=== PATIENT | female | born 1995 | race Caucasian/White ===

== ENCOUNTER 2018-05-19 04:47 | Inpatient (IN) | payer BC, MEDICAID ==
[2018-05-18 12:40] LABS: ABSOLUTE EOSINOPHILS # (AUTO) 0.4 10^3/uL (0.0-0.6); ABSOLUTE LYMPHOCYTES (AUTO) 1.8 10^3/uL (0.5-4.7); ABSOLUTE MONOCYTES (AUTO) 0.8 10^3/uL (0.1-1.4); ABSOLUTE NEUT (AUTO) 9.2 10^3/uL (1.7-8.2); BASOPHILS % (AUTO) 0.4 % (0-2); EOSINOPHILS % (AUTO) 3.3 % (0-6); HEMATOCRIT 33.1 % (36.0-47.0); HEMOGLOBIN 10.8 g/dL (12.0-15.5); LYMPHOCYTES % (AUTO) 14.5 % (13-45); MEAN CORPUSCULAR HEMOGLOBIN 24.8 pg (27.0-33.4); MEAN CORPUSCULAR HGB CONC 32.6 g/dL (32.0-36.0); MEAN CORPUSCULAR VOLUME 76 fl (80-97); MONOCYTES % (AUTO) 6.9 % (3-13); PLATELET COUNT 337 10^3/uL (150-450); RED BLOOD COUNT 4.34 10^6/uL (3.72-5.28); SEGMENTED NEUTROPHILS % (AUTO) 74.9 % (42-78); TOTAL CELLS COUNTED % (AUTO) 100 %; WHITE BLOOD COUNT 12.3 10^3/uL (4.0-10.5)
[2018-05-18 12:54] LABS: APPEARANCE,URINE CLEAR; BILIRUBIN,URINE NEGATIVE (NEGATIVE); COLOR,URINE YELLOW; GLUCOSE, URINE 50 mg/dL (NEGATIVE); KETONES,URINE TRACE mg/dL (NEGATIVE); LEUKOCYTE ESTERASE,URINE NEGATIVE (NEGATIVE); NITRITE,URINE NEGATIVE (NEGATIVE); PROTEIN,URINE NEGATIVE (NEGATIVE); URINE SPECIFIC GRAVITY 1.017; UROBILINOGEN,URINE NEGATIVE mg/dL (<2.0)
[2018-05-18 12:55] LABS: URINE AMPHETAMINES SCREEN NEGATIVE; URINE BARBITURATES SCREEN NEGATIVE; URINE BENZODIAZEPINES SCREEN NEGATIVE; URINE COCAINE SCREEN NEGATIVE; URINE MARIJUANA (THC) SCREEN NEGATIVE; URINE METHADONE SCREEN NEGATIVE; URINE PHENCYCLIDINE SCREEN NEGATIVE
[2018-05-19] MEDS ORDERED: CEFAZOLIN 1 GM/D5W RTU 1 GM/50 ML RTUPB IV PRN (05:00)
[2018-05-19] MEDS ORDERED: RINGERS SOLUTION,LACTATED 1,500 ML IV PRN (05:00)
[2018-05-19] MEDS ORDERED: LIDOCAINE 0.5% INJ-PF (5 MG/ML) 50 ML SDV SUBCUT PRN (05:00)
[2018-05-19] MEDS ORDERED: LACTATED RINGERS 1000 ML IV PRN (05:00)
[2018-05-19] MEDS ORDERED: CITRIC ACID/SODIUM CITRATE ORAL SOLN 15 ML UDCUP ONE (06:31)
[2018-05-19] MEDS ORDERED: CITRIC ACID/SODIUM CITRATE ORAL SOLN 15 ML UDCUP PO ONE ×2 (06:45→21:15)
[2018-05-19] MEDS ORDERED: ACETAMINOPHEN 1,000 MG/100 ML RTUPB IV ONE (07:22)
[2018-05-19] MEDS ORDERED: MIDAZOLAM 2 MG/2 ML INJ ONE (07:37)
[2018-05-19] MEDS ORDERED: EPHEDRINE SULFATE INJ 50 MG/1 ML AMPULE ONE (07:37)
[2018-05-19] MEDS ORDERED: OXYTOCIN 10 UNIT/ML VIAL ONE (07:38)
[2018-05-19] MEDS ORDERED: FENTANYL CITRATE INJ/PF 100 MCG/2 ML AMPUL ONE (07:38)
[2018-05-19] MEDS ORDERED: MEPERIDINE HCL/PF INJ 25 MG/1 ML DISP.SYRIN IV PRN (07:54)
[2018-05-19] MEDS ORDERED: PROMETHAZINE HCL INJ 25 MG/1 ML VIAL IV PRN ×3 (07:54→09:38)
[2018-05-19] MEDS ORDERED: FENTANYL CITRATE INJ/PF 100 MCG/2 ML AMPUL IV PRN ×3 (07:54)
[2018-05-19] MEDS ORDERED: MORPHINE SULFATE 10 MG/ML INJ IV PRN ×2 (07:54→09:38)
[2018-05-19] MEDS ORDERED: ONDANSETRON HCL INJ/PF 4 MG/2 ML SDV IV PRN (07:54)
[2018-05-19] MEDS ORDERED: DIPHENHYDRAMINE HCL 50 MG/ML VIAL IV PRN (07:54)
[2018-05-19] MEDS ORDERED: OXYCODONE-ACETAMINOPHEN 5-325 MG TABLET PO PRN (09:38)
[2018-05-19] MEDS ORDERED: MEASLES,MUMPS&RUBELLA VACC/PF 0.5 ML VIAL SUBCUT PRN (09:38)
[2018-05-19] MEDS ORDERED: OXYTOCIN/NORMAL SALINE 20 UNIT/1,000 ML RTUINJ IV PRN (09:38)
[2018-05-19] MEDS ORDERED: DIPH/PERTUSS(ACELL)/TETANUS VAC/PF 0.5 ML SYR (>=10YO) IM PRN (09:38)
[2018-05-19] MEDS ORDERED: ACETAMINOPHEN 325 MG TABLET PO PRN (09:38)
[2018-05-19] MEDS ORDERED: ACETAMINOPHEN 1,000 MG/100 ML RTUPB IV PRN (09:38)
[2018-05-19] MEDS ORDERED: SIMETHICONE 80 MG TAB.CHEW PO PRN (09:38)
--- NOTE | 2018-05-19 10:23 | OPERATIVE REPORT E ---
Operative Report NAME: MIS DENNIS : 1995 AGE: 23Y DATE OF SURGERY: 05/19/2018 ROOM: 215 PREOPERATIVE DIAGNOSES: 1. IUP at 39 weeks and 4 days. 2. Previous x2. 3. Undesired fertility. POSTOPERATIVE DIAGNOSES: 1. IUP at 39 weeks and 4 days. 2. Previous x2. 3. Undesired fertility. SURGEON: ALAINA MURDOCK M.D. ANESTHESIA: Dr. Leary with a spinal. FINDINGS: Female infant in cephalic presentation with Apgars of 8 and 9, weight 7 pounds 10 ounces. COMPLICATIONS: None. ESTIMATED BLOOD LOSS: 750 mL. SPECIMENS REMOVED: Segments of bilateral fallopian tubes. PROCEDURE: A low transverse hysterotomy section with [place] tubal ligation. PROCEDURE IN DETAIL: The patient was taken to the operating room and prepared and draped in the normal sterile fashion in the supine position with a leftward tilt. A transverse skin incision was made with the scalpel and carried through to the underlying layer of fascia. With the same scalpel, the fascia was excised in the midline and extended laterally with Lazo's. The fascia was dissected from the rectus muscle sharply with Lazo's both superiorly and inferiorly. The rectus muscle was divided. The peritoneal cavity was entered sharply. The peritoneal cavity was divided with good visualization of the bladder and the uterus. The bladder blade was inserted. The hysterotomy was nicked with a scalpel and extended laterally with surgeon finger fracture. The was then delivered atraumatically. The nose and mouth were suctioned with a suction bulb and the cord was clamped and cut and the infant was handed off to awaiting pediatricians. Cord blood was collected. The placenta was removed manually. The uterus was exteriorized and cleared of clots and debris. The hysterotomy was closed with 0 Monocryl in a running, locked fashion and a second layer of the same suture was used to imbricate to ensure hemostasis. The attention was turned to the fallopian tubes where the right fallopian tube was grasped with a Tono and the mesosalpinx was divided. A 3.5 cm section of the fallopian tube was then tied off with 2 large pieces of 2-0 Chromic. The intermediate section was then transected and removed using Metzenbaum's. The pedicles were made hemostatic with the Bovie. This was repeated on the left fallopian tube without difficulty. The uterus was then returned to the abdomen. The pedicles were reinspected and found to be hemostatic. The rectus muscle and peritoneum were reapproximated with a mattress stitch of 2-0 Chromic. The fascia was closed with 0 Vicryl. The subcutaneous layer was closed with plain catgut and the skin was closed with 4-0 Vicryl. The patient tolerated the procedure well. Sponge, lap, and needle counts were correct x2 and the patient was taken to recovery in stable condition. DICTATING PHYSICIAN: ALAINA MURDOCK M.D. [id number] PHY#: [id number] ID: [id number] JOB#: [id number] ACCT: [id number] cc:ALAINA MURDOCK M.D. >
[2018-05-19] MEDS ORDERED: MORPHINE SULFATE 10 MG/ML INJ ONE (11:01)
[2018-05-19] MEDS ORDERED: METOCLOPRAMIDE HCL INJ/PF 10 MG/2 ML SDV ONE (11:33)
[2018-05-19] MEDS ORDERED: ONDANSETRON HCL INJ/PF 4 MG/2 ML SDV ONE (11:33)
[2018-05-19] MEDS ORDERED: LIDOCAINE 2% INJ-PF (20 MG/ML) 2 ML AMPUL ONE (11:33)
[2018-05-19] MEDS ORDERED: KETOROLAC TROMETHAMINE 60 MG/2 ML SDV ONE (11:33)
[2018-05-19] MEDS ORDERED: DEXAMETHASONE SOD PHOSPHATE INJ 4 MG/1 ML VIAL ONE (11:33)
[2018-05-19] MEDS ORDERED: PHENYLEPHRINE HCL INJ/PF 10 MG/1 ML SDV ONE (11:33)
[2018-05-19] MEDS: PRENATAL VITAMIN W DHA CAPSULE PO SCH (12:53)
[2018-05-19] MEDS: DOCUSATE SODIUM 100 MG CAPSULE PO SCH ×2 (12:53→17:26)
[2018-05-19] MEDS ORDERED: KETOROLAC TROMETHAMINE INJ/PF 30 MG/1 ML SDV IV SCH (14:00)
[2018-05-19] MEDS: KETOROLAC TROMETHAMINE INJ/PF 30 MG/1 ML SDV IV SCH (17:25)
[2018-05-19] MEDS: OXYCODONE-ACETAMINOPHEN 5-325 MG TABLET PO PRN (22:30)
[2018-05-20] MEDS: KETOROLAC TROMETHAMINE INJ/PF 30 MG/1 ML SDV IV SCH ×2 (02:18→09:17)
[2018-05-20 06:14] LABS: HEMOGLOBIN 9.4 g/dL (12.0-15.5); MEAN CORPUSCULAR HEMOGLOBIN 24.9 pg (27.0-33.4); MEAN CORPUSCULAR HGB CONC 32.4 g/dL (32.0-36.0); MEAN CORPUSCULAR VOLUME 77 fl (80-97); PLATELET COUNT 309 10^3/uL (150-450); RED BLOOD COUNT 3.77 10^6/uL (3.72-5.28); RED CELL DISTRIBUTION WIDTH 16.1 % (11.5-14.0); WHITE BLOOD COUNT 15.3 10^3/uL (4.0-10.5)
[2018-05-20] MEDS: OXYCODONE-ACETAMINOPHEN 5-325 MG TABLET PO PRN ×2 (08:26→16:57)
[2018-05-20] MEDS ORDERED: ONDANSETRON HCL 8 MG TABLET PO ONE (09:12)
[2018-05-20] MEDS: SERTRALINE HCL 50 MG TABLET PO SCH (09:22)
[2018-05-20] MEDS: PRENATAL VITAMIN W DHA CAPSULE PO SCH (09:22)
[2018-05-20] MEDS: DOCUSATE SODIUM 100 MG CAPSULE PO SCH ×2 (09:22→17:01)
[2018-05-20] MEDS ORDERED: ONDANSETRON 4 MG TAB.RAPDIS PO ONE (10:00)
--- NOTE | 2018-05-20 10:49 | PDOC PROGRESS REPORT ---
Subjective-OB Progress Note for:: 05/20/18 Subjective: 23yo G3 now P2 s/p repeat and BTL. Pt. reports she ambulated yesterday without difficulty, passing gas and without problems. However, around 2pm started to have a headache that would intensify with position changes. Pt. states she had caffeine and pain medication and headache got better but it is now back and her neck is also hurting. Pt. does report hx of migraines. Also nauseated this AM. No other concerns. Physical Exam (OB) Vital Signs: Temp Pulse Resp BP Pulse Ox 97.7 F 86 22 H 128/56 H 97 05/20/18 07:50 05/20/18 07:50 05/20/18 07:50 05/20/18 07:50 05/20/18 07:50 Intake & Output 05/19/18 05/20/18 05/21/18 06:59 06:59 06:59 Intake Total 1411 Output Total 2700 Balance -1289 Weight 118.388 kg - General General Appearance: Appears well In distress: None - Dressing Removed: No - Optsite with scant shadow drainage Incision: Dressing Closure Type: Sutures - Lochia Lochia Amount: Small 10-25 ml Lochia Color: Rubra/Red - Abdomen Description: Soft, Round Hernia Present: No Fundal Description: Firm, Midline Fundal Height: u/u - u/2 - Respiratory Respiratory Status: No respiratory distress - Extremities Upper extremity: Normal inspection Lower extremities: Normal inspection - Neurological Cognition: Normal Orientation: AAOx4 - Psychological Associated symptoms: Normal affect, Normal mood Objective-Diagnostic Laboratory: 05/20/18 05:38 05/20/18 05:38 WBC 15.3 H RBC 3.77 Hgb 9.4 L Hct 29.0 L MCV 77 L MCH 24.9 L MCHC 32.4 RDW 16.1 H Plt Count 309 Assessment and Plan(PN) - Assessment and Plan (1) headache Is this a current diagnosis for this admission?: Yes Plan: anesthesia consult to rule out spinal headache will also give fioricet to rule out migraine (2) Anemia affecting third Is this a current diagnosis for this admission?: Yes Plan: Increase dietary iron and FeSO4 BID. (3) S/P tubal ligation Is this a current diagnosis for this admission?: Yes Plan: Routine pp care, continue to monitor for s/s of infection (4) Delivery by elective section Is this a current diagnosis for this admission?: Yes Plan: Routine pp care, continue to monitor for s/s of infection - Time Spent with Patient Time with patient: Less than 15 minutes - Disposition Anticipated Discharge: Home Within: within 24 hours
[2018-05-20] MEDS ORDERED: BUTALB/ACETAMINOPHEN/CAFFEINE 1 TAB EACH PO PRN (10:50)
[2018-05-20] MEDS: IBUPROFEN 800 MG TABLET PO SCH ×3 (11:31→23:22)
[2018-05-20] MEDS ORDERED: IBUPROFEN 800 MG TABLET PO SCH ×2 (12:00→15:00)
[2018-05-20] MEDS ORDERED: RINGERS SOLUTION,LACTATED 1,000 ML IV PRN (13:37)
[2018-05-20] MEDS ORDERED: RINGERS SOLUTION,LACTATED 1,000 ML IV ONE (14:00)
[2018-05-21] MEDS: IBUPROFEN 800 MG TABLET PO SCH (05:55)
[2018-05-21] MEDS: DOCUSATE SODIUM 100 MG CAPSULE PO SCH (09:25)
[2018-05-21] MEDS: SERTRALINE HCL 50 MG TABLET PO SCH (09:25)
[2018-05-21] MEDS: PRENATAL VITAMIN W DHA CAPSULE PO SCH (09:25)
--- NOTE | 2018-05-21 11:46 | PDOC DISCHARGE SUMMARY ---
Final Diagnosis Discharge Date: 05/21/18 - POD #2, pt desires to go home today. O+, . s/p Rpt . Hx depression and on Zoloft. Doing well, no complaints - Final Diagnosis (1) Anemia affecting third Is this a current diagnosis for this admission?: Yes (2) Delivery by elective section Is this a current diagnosis for this admission?: Yes (3) headache Is this a current diagnosis for this admission?: Yes (4) S/P tubal ligation Is this a current diagnosis for this admission?: Yes Discharge Data - Discharge Medication Prescriptions: Ibuprofen [Motrin 800 mg Tablet] 800 mg PO Q6 #60 tablet Oxycodone HCl/Acetaminophen [Percocet 5-325 mg Tablet] 1 tab PO Q4HP PRN #30 tablet PRN Reason: Home Medications: Iron 65 mg PO DAILY 05/18/18 Pnv No.95/Ferrous Fum/Folic AC [ Caplet] 1 each PO DAILY 05/18/18 Ibuprofen [Motrin 800 mg Tablet] 800 mg PO Q6 #60 tablet 05/21/18 Oxycodone HCl/Acetaminophen [Percocet 5-325 mg Tablet] 1 tab PO Q4HP PRN #30 tablet 05/21/18 Reason(s) for Admission: Ceasarean Section-Repeat Procedures: NST, Ultrasound Intrapartum Procedure(s): : Low Cervical, Transverse - Diagnosis Test Laboratory: Temp Pulse Resp BP Pulse Ox 98 F 72 16 127/59 H 97 05/21/18 08:00 05/21/18 08:00 05/21/18 08:00 05/21/18 08:00 05/21/18 08:00 05/18/18 05/18/18 05/20/18 12:05 12:10 05:38 RBC 4.34 3.77 Hgb 10.8 L 9.4 L Hct 33.1 L 29.0 L Urine Opiates Screen NEGATIVE - Discharge information/Instructions Discharge Activity: Activity As Tolerated, No Driving, No Lifting Over 10 Pounds, Pelvic Rest Discharge Diet: As Tolerated, Regular Disposition: HOME, SELF-CARE Follow up with: [facility] in: 1, Weeks
[2018-05-21 13:34] VITALS: BP 127/59
== END 2018-05-21 14:24 | disposition home or self-care (01) | DRG 785 ==
LOC: 2S 04:47
PROVIDERS: ADMIT Obstetrics & Gynecology; ATTEND Obstetrics & Gynecology
PROC: 0UB70ZZ Excision of Bilateral Fallopian Tubes, Open Approach (ICD-10-PCS; 2018-05-19)
PROC: 10D00Z1 Extraction of Products of Conception, Low, Open Approach (ICD-10-PCS; principal; 2018-05-19 07:45)
DX: O34.219 Maternal care for unspecified type scar from previous cesarean delivery (principal); O99.013 Anemia complicating pregnancy, third trimester; R51 Headache; R11.0 Nausea; Z30.2 Encounter for sterilization; Z3A.39 39 weeks gestation of pregnancy; Z37.0 Single live birth
CPT/HCPCS: 1961; 36415; 62273; 80307; 81001; 85025; 85027; 86850; 86900; 86901; 88302; 94799; J0131; J1100; J1885; J2250; J2270; J2370; J2405; J2590; J2765; J3010; J3490; J7120; S0119